=== PATIENT | female | born 1970 | race African-American/Black ===

== ENCOUNTER 2018-02-26 15:34 | Emergency (ER) | payer OTHER ==
[~2018-02-26] VITALS: Ht 149.9 cm; Wt 98.9 kg
[2018-02-26 15:40] VITALS: BP 137/72
[2018-02-26 16:02] LABS: APPEARANCE,URINE CLOUDY; BILIRUBIN, URINE NEGATIVE (NEGATIVE); COLOR,URINE PALE YELLOW; GLUCOSE, URINE (UA) 4+ (NEGATIVE); KETONES,URINE 1+ (NEGATIVE); LEUKOCYTE ESTERASE ,URINE 3+ (NEGATIVE); NITRITE,URINE NEGATIVE (NEGATIVE); PH,URINE 5 (4.5-8.0); PROTEIN,URINE 2+ (NEGATIVE); UROBILINOGEN,URINE NORMAL MG/DL (0.0-1.0)
--- NOTE | 2018-02-26 16:54 | Emergency Room Report ---
History of Present Illness General Chief Complaint: Vaginal Source: Patient Present Illness HPI pt is a 47 y.o. AA female, hx of uncontrolled DMII, here c/o severe burning sensation inside vaginal canal and burning with urination. pt had burning sensation with urination and vaginal white dc few days ago, went to pcp, was given an unknown abx inj(post positive UTI), and given flagyl post wet mount(no results). pt also took diflucan due to hx of yeast infx, now here c/o excess burning and swelling in vaginal area, feeling feverish, chills, post sexual encounter with her one day ago. per pt, had a cold sore and performed oral intercourse. pt c/o thingling sensation in vaginal canal, denies hematuria, frequency, suprapubic pain, flank pain, n/v. pt is insulin depended, recently switched to 45R 20N in AM and 22R 10N at night , plus metforming 1000mg bid. took insulin this Am but no metformin. reports glucose usually above 500 in bw insulin inj. 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 Allergies: Coded Allergies: AVOCADO (Verified Allergy, Unknown, 02/26/18) BANANA (Verified Allergy, Unknown, 02/26/18) Uncoded Allergies: NECTARINES (Allergy, Unknown, 02/26/18) Patient History Past Medical History: see triage record, DM Past Surgical History: unable to obtain Pertinent Family History: none Last Menstrual Period: 01/2018 Now: No Immunizations: UTD Reviewed Nursing Documentation: PMH: Agreed; PSxH: Agreed Nursing Documentation-PMH Past Medical History: No History, Except For Hx Hypertension: Yes Hx Diabetes: Yes Review of Systems All Other Systems: negative except mentioned in HPI Physical Exam Vital Signs Date Time Temp Pulse Resp B/P (MAP) Pulse Ox O2 Delivery O2 Flow Rate FiO2 02/26/18 15:40 99.2 102 18 137/72 94 Room Air 99.1 Sp02 EP Interpretation: reviewed, normal General Appearance: normal inspection, well appearing, alert, mild distress Head: normocephalic Eyes: bilateral eye normal inspection, bilateral eye PERRL ENT: normal ENT inspection Neck: normal inspection, full range of motion, supple Respiratory: normal inspection, chest non-tender, lungs clear, normal breath sounds, no rhonchi, no respiratory distress, no retraction, no accessory muscle use, no wheezing Cardiovascular #1: normal inspection, normal peripheral pulses, regular rate, rhythm, no edema, no gallop, no JVD, no murmur, no rub, normal capillary refill Cardiovascular #2: 2+ radial (R), 2+ radial (L) Gastrointestinal: normal inspection, normal bowel sounds, non tender, no mass, no guarding, no rebound Rectal: deferred Genitourinary: no CVA tenderness, other - multiple vesicular lesions inside vaginal canal and labia, erythema of labia majora and minora , scant white dc observed in vag canal Musculoskeletal: normal inspection, back normal, non-tender Neurologic: normal inspection, alert, oriented x3, responsive Psychiatric: normal inspection, mood/affect normal Skin: rash - multiple vesicular lesions in vaginal canal and erythema of labia majora and minora Lymphatic: normal inspection, no adenopathy Medical Decision Making PA Attestation all diagnosis, physical exam, tx were reviewed by my supervising physician, Dr. Alexander Medical: Other - DMII Reaction to Intervention: Improved Diagnostic Impression: Primary Impression: Genital herpes Additional Impressions: UTI (urinary tract infection) Diabetes ER Course pt is a 47 y.o. AA female, hx of uncontrolled DMII, here c/o severe burning sensation inside vaginal canal and burning with urination. pt had burning sensation with urination and vaginal white dc few days ago, went to pcp, was given an unknown abx inj(post positive UTI), and given flagyl post wet mount(no results). pt also took diflucan due to hx of yeast infx, now here c/o excess burning and swelling in vaginal area, feeling feverish, chills, post sexual encounter with her one day ago. per pt, had a cold sore and performed oral intercourse. pt c/o thingling sensation in vaginal canal, denies hematuria, frequency, suprapubic pain, flank pain, n/v. pt is insulin depended, recently switched to 45R 20N in AM and 22R 10N at night , plus metforming 1000mg bid. took insulin this Am but no metformin. reports glucose usually above 500 in bw insulin inj. 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 Ddx considered but are not limited to genital herpes, UTI, BV, candidaisis Vital signs: are WNL, pt. is afebrile H&PE are most consistent with genital herpes and UTI ORDERS: HSV culture, Acyclovir 400mg tid 10days, Bactrim DS bid 10 days, motrin 400mg q6h prn ED INTERVENTIONS: HSV cx performed, glucose of 300, pt asked to take her 1000mg metformin DISCHARGE: At this time pt. is stable for d/c to home. Will provide printed patient care instructions, and any necessary prescriptions. Care plan and follow up instructions have been discussed with the patient prior to discharge. UA: ketone 1+, Leuk 3+,. glucose 4+, WBC:20-30, blood: 2+, RBC present Lab Results Impression UTI Last Vital Signs Date Time Temp Pulse Resp B/P (MAP) Pulse Ox O2 Delivery O2 Flow Rate FiO2 02/26/18 15:40 98.6 102 18 137/72 94 Room Air 98.6 Status: improved Disposition: HOME, SELF-CARE Condition: Stable Scripts Ibuprofen* (MOTRIN*) 400 Mg Tablet 400 MG ORAL FOUR TIMES A DAY for 7 Days, #28 TAB 0 Refills Prov: Drooteo Stone P.A. 02/26/18 Acyclovir* (ACYCLOVIR*) 400 Mg Tablet 400 MG ORAL EVERY 8 HOURS for 10 Days, #30 TAB Prov: Doroteo Stone P.A. 02/26/18 Trimethoprim/Sulfamethoxazole (Bactrim Ds Tablet) 1 Each Tablet 1 TAB ORAL TWICE A DAY for 10 Days, #20 TAB Prov: Doroteo Stone P.A. 02/26/18 Referrals: NOT CHOSEN IPA/,REFERRING (PCP) Patient Instructions: Genital Herpes, Urinary Tract Infection Doroteo StoneALam February 26, 2018 16:54
[2018-02-26] MEDS ORDERED: ACYCLOVIR400 MG ORAL (16:59)
[2018-02-26] MEDS ORDERED: BACTRIM-DS1 EA ORAL (16:59)
[2018-02-26] MEDS ORDERED: IBUPROFEN400 MG ORAL (16:59)
[2018-02-26 17:40] VITALS: BP 126/69
[2018-02-26 17:49] VITALS: BP 126/69
== END 2018-02-26 17:57 | disposition home or self-care (01) ==
LOC: EMR 16:18
DX: A60.00 Herpesviral infection of urogenital system, unspecified (principal); N39.0 Urinary tract infection, site not specified; E11.9 Type 2 diabetes mellitus without complications; I10 Essential (primary) hypertension; Z79.84 Long term (current) use of oral hypoglycemic drugs; Z91.018 Allergy to other foods
CPT/HCPCS: 81003; 82962; 87086; 99284